=== PATIENT | male | born 1995 | race Caucasian/White ===

== ENCOUNTER 2019-12-25 17:19 | Emergency (ER) | payer OTHER ==
[~2019-12-25] VITALS: Ht 190.5 cm; Wt 133.8 kg
[~2019-12-25 17:19] MED LIST: ABILIFY 5 MG TAB5 M1; BENADRYL25 MG PO; BENTYL20 MG PO; FAMOTIDINE PO; FLEXERIL PO; IBUPROFEN 800800 M1 PO; NOHOMEMEDICATIONS; PREDNISONE50 MG PO; TOBREX5 ML OP; TOPROL XL50 MG; ULTRAM 50MG TAB50 MG PO; WELLBUTRIN SR150 MG; ZOLOFT25 MG
[2019-12-25] MEDS ORDERED: BLOOD PRESSURE MED (17:32)
[2019-12-25 18:02] LABS: INFLUENZA A ANTIGEN Negative (Negative)
[2019-12-25] MEDS ORDERED: ZPAK PO (18:20)
[2019-12-25] MEDS ORDERED: PREDNISONE 20 M20 MG PO (18:20)
[2019-12-25 18:31] VITALS: BP 146/96
== END 2019-12-25 18:31 | disposition home or self-care (01) ==
LOC: M.ERS 17:19
PROVIDERS: Nurse Practitioner Family
DX: J10.1 Influenza due to other identified influenza virus with other respiratory manifestations (principal); I10 Essential (primary) hypertension

== ENCOUNTER 2021-03-02 23:17 | Emergency (ER) | payer OTHER ==
[~2021-03-02] VITALS: Ht 193 cm; Wt 135.2 kg
[~2021-03-02 23:17] MED LIST changes: +BLOOD PRESSURE MED; +PREDNISONE 20 M20 MG PO; +ZPAK PO
[2021-03-02 23:51] LABS: ABSOLUTE BASOPHILS 0.1 thou/uL (0.0-0.2); ABSOLUTE EOSINOPHILS 0.3 thou/uL (0.0-0.7); ABSOLUTE LYMPHOCYTES 2.6 thou/uL (0.8-5.3); ABSOLUTE MONOCYTES 0.9 thou/uL (0.0-1.2); ABSOLUTE NEUTROPHILS 5.7 thou/uL (1.6-8.1); BASOPHILS 0.6 %; HEMATOCRIT 40.8 % (42.0-52.0); HEMOGLOBIN 14.2 gm/dL (14.0-18.0); LYMPHOCYTES 26.9 %; MCH 30.7 pg (26.0-34.0); MCHC 34.8 g/dL (28.0-37.0); MCV 88.1 fL (80.0-100.0); MONOCYTES 9.8 %; MPV 7.5 fl. (7.2-11.1); NUCLEATED RBCS 0 /100WBC; PLATELET COUNT* 324 thou/uL (150-400); POLYS 59.7 %; RBC 4.63 mil/uL (4.50-6.00); RDW-CV 13.7 % (10.5-14.5); WBC 9.6 thou/uL (4.0-11.0)
[2021-03-02 23:59] LABS: ANION GAP 12 mmol/L (7-16); BUN 16 mg/dL (7-18); CHLORIDE 100 mmol/L (98-107); CO2 26 mmol/L (21-32); CREATININE 1.1 mg/dL (0.6-1.3); GLUCOSE 99 mg/dL (70-99); POTASSIUM 3.6 mmol/L (3.5-5.1); SODIUM 138 mmol/L (136-145)
[2021-03-03 00:03] LABS: ALBUMIN 3.9 g/dL (3.4-5.0); ALKALINE PHOSPHATASE 115 U/L (46-116); LIPASE 110 U/L (73-393); SGOT 50 U/L (15-37); SGPT 107 U/L (30-65); TOTAL BILIRUBIN < 0.1 mg/dL (<0.1-1.0); TOTAL PROTEIN 7.9 g/dL (6.4-8.2)
[2021-03-03] MEDS ORDERED: CARAFATE 1 GM TA1 GM PO (01:18)
[2021-03-03] MEDS ORDERED: OMEPRAZOLE40 MG PO (01:18)
[2021-03-03 02:22] VITALS: BP 151/75
--- NOTE | 2021-03-03 11:01 | EKG ---
[place] [address] ELECTROCARDIOGRAM REPORT Name: NATE ROBERTSON Room: [facility]#: [id number] Admission: 03/02/21 Attend Phys: Discharge: 03/03/21 Date of : 89 Date of Service: 03/02/21 2334 Report #: [id number] THIS REPORT FOR: //name// [facility] ED Test Date: 2021-03-02 Test Time: 23:34:36 Pat Name: NATE ROBERTSON Department: Room: Gender: Branch Officer: [place] : 1995 Requested By: Kim Mcguire Order Number: [id number] MD: Hi Smith Measurements Intervals [place] Rate: 79 P: 39 CT: 160 QRS: 43 QRSD: 85 T: 27 QT: 352 QTc: 404 Interpretive Statements Sinus rhythm Abnormal Q suggests anterior infarct Probable anteroseptal infarct, old Baseline wander in lead(s) V1,V3,V4,V5,V6 No previous ECG available for comparison Electronically Signed On 03-03-2021 11:01:01 CDT by Hi Smith [email or web address] <ELECTRONICALLY SIGNED> By: Hi Smith MD, FAC 03/03/21 1101 2334 [id number] Hi Smith MD, [facility] /EPI
== END 2021-03-03 02:22 | disposition home or self-care (01) ==
LOC: M.ERS 23:17
PROVIDERS: Personal Emergency Response Attendant
DX: K92.2 Gastrointestinal hemorrhage, unspecified (principal); I10 Essential (primary) hypertension